=== PATIENT | male | born 1990 ===

== ENCOUNTER 2017-09-18 20:10 | Inpatient (IN) | payer OTHER ==
[2017-09-18 20:23] VITALS: O2SAT 99
--- NOTE | 2017-09-18 20:37 | C.PDOC ---
History Of Present Illness Pt was transferred here for psychiatric admission. Pt was medically cleared at the referring facility. Time Seen by Provider: 09/18/17 20:23 Chief Complaint (Nursing): Psychiatric Evaluation History Per: Patient, Other (Transfer papers) Onset/Duration Of Symptoms: Days Current Symptoms Are (Timing): Still Present Modifying Factor(s): Alcohol Severity: Moderate Associated Symptoms: Depression Additional History Per: Prior Records Past Medical History Reviewed: Historical Data, Nursing Documentation, Vital Signs Vital Signs: Last Vital Signs Temp 98.3 F 09/18/17 20:14 Pulse 60 09/18/17 20:14 Resp 18 09/18/17 20:14 BP 154/93 H 09/18/17 20:14 Pulse Ox 99 09/18/17 20:14 - Medical History PMH: Depression, Diabetes, Diverticulitis Other Surgeries: Colon resection due to diverticulitis. Family History: States: Unknown Family Hx - Social History Hx Alcohol Use: Yes Hx Substance Use: No - Immunization History Hx Tetanus Toxoid Vaccination: No Hx Influenza Vaccination: No Hx Pneumococcal Vaccination: No Review Of Systems Constitutional: Negative for: Fever Respiratory: Negative for: Shortness of Breath Gastrointestinal: Negative for: Vomiting Neurological: Negative for: Weakness, Seizures Physical Exam - Physical Exam Appears: Non-toxic, No Acute Distress Skin: Normal Color, Warm, Dry Head: Atraumatic, Normacephalic Eye(s): bilateral: PERRL, EOMI Neck: Normal ROM, Supple Cardiovascular: Rhythm Regular Respiratory: Normal Breath Sounds, No Accessory Muscle Use Gastrointestinal/Abdominal: Soft, No Tenderness Extremity: Normal ROM Neurological/Psych: Oriented x3, Normal Motor ED Course And Treatment O2 Sat by Pulse Oximetry: 99 Pulse Ox Interpretation: Normal Disposition - Disposition Disposition: HOSPITALIZED Disposition Time: 20:37 Condition: STABLE - Clinical Impression Clinical Impression: Depression Decision To Admit - Pt Status Changed To: Hospital Disposition Of: Inpatient - Admit Certification Admit to Inpatient:: After my assessment, the patient will require hospitalization for at least two midnights. This is because of the severity of symptoms shown, intensity of services needed, and/or the medical risk in this patient being treated as an outpatient. - InPatient: Physician Admission Certification: I certify that this patient requires 2 or more midnights of care for the following reason:: Psych. - . Bed Request Type: Psychiatry Admitting Physician: Diya Badillo Patient Diagnosis: Depression
--- NOTE | 2017-09-18 22:20 | PCM.BM ---
<Nilda Beltran - Last Filed: 09/18/17 22:16> Treatment Plan Problems - Problems identified on initial assessmt Depression Date Initiated: 09/18/17 Time Initiated: 22:10 Assessment reference: NA Status: Active Suicidal Ideation Date Initiated: 09/18/17 Time Initiated: 22:10 Assessment reference: NA Status: Active Treatment assets and liabiliti Patient Assests: negotiates basic needs Patient Liabilities: dietary restrictions (Diabetes diet), substance abuse ( Alcohol), medical problems (Diabetes) - Milieu Protocol Maintain good personal hygiene: daily Encourage regular showers, daily Remind patient to perform daily oral care, every shift Assist patient to perform ADL's Conduct patient checks and document Observation sheet: Q15 minutes Maintain personal safety: every shift Educate patient to report safety concerns to staff, every shift Monitor environment for contraband/sharps Medication safety: Monitor for expected outcome, potential side effects: every shift, Assess barriers to learning: every shift, Assess readiness for medication education: every shift <Diya Badillo - Last Filed: 09/21/17 11:40> - Diagnosis (1) Depression Status: Acute Interventions: 09/21/17 11:40 * Assess/adjust medications daily and /or as needed * See patient on an individual basis 7x/week to assess symptoms of depression * Monitor for side effects & effectiveness of medications * (2) Alcohol abuse Status: Acute Interventions: 09/21/17 11:40 * Assess 7x/week regarding severity of withdrawal * Educate regarding risks, benefits, side effects and alternatives of medications * Use Motivational Interviewing for abstinence * Use CBT for relapse prevention * Medication management for withdrawal symptoms * Encourage medication assisted treatment * <Roseann Breaux - Last Filed: 09/21/17 16:02> Family Contact Family involvement: Patient does not wish Family/SO involvement Family contact: Patient declines to allow family contact at present - Goals for Treatment Patient goals for treatment: "I want to be referred to [facility] outpatient program." Discharge/Continuing Care - Education Needs Education Needs: Patient Medication, Patient Diagnosis/Disease Process, Patient Coping Skills, Patient Placement options, Patient Community resources - Discharge Discharge Criteria: Free of Suicidal thoughts, No longer exhibiting s/s of withdrawal, Reduction of target symptoms Discharge to:: Home, With Family - Treatment Team Participation Discussed with Family/SO: No Was Patient/Family/SO present at Treatment Team Meeting: Yes
[2017-09-19] MEDS: Multiple Vitamins Tab PO SCH (09:06)
--- NOTE | 2017-09-19 12:39 | PCM.PSYCH ---
Initial Psychiatric Evaluation - Initial Psychiatric Evaluation Type of Admission: Voluntary Legal Status: Capacity Chief Complaint (in patient's own words): "I' m depressed" History of Present Illness and Precipitating Events: Pt is 26 year old male who was transferred to [facility] for worsening of depression, PTSD and alcohol use disorder. His BAL was 288. Pt stated that he has had worsening of depressive symptoms with SI. However, he denied intent or plan. He reported his X-BF committed suicide 4 year ago. He stated that he admitted multiple times for depression. His was decompensated 3 weeks ago due to unemployment issues, feeling guilty regarding his x-BF and relational conflict with family. He reported he had difficulty in sleep, low appetite, and anhedonia. He has had one suicide attempt in the past (He cut his left wrist). Pt stated that he drinks a pint of vodka and 2-3 cans of beer a day for the past 4 years. Pt reported alcohol withdrawal symptoms including nausea, headache , heart racing, hot and cold sweats, and seizures. He reported visual hallucination consisting of red spots and light flashes. Currently he denied AVH, paranoid delusions. He denied manic symptoms. Current Medications: Active Medications Generic Name Dose Route Start Last Admin Trade Name Freq PRN Reason Stop Dose Admin Clonidine HCl 0.1 mg 09/18/17 22:10 Catapres PO Q4H PRN Symptoms of alcohol withdrawl Folic Acid 1 mg 09/19/17 10:00 09/19/17 09:06 Folic Acid PO 1 mg DAILY SETH Administration Hydroxyzine HCl 25 mg 09/18/17 22:01 Atarax PO Q6H PRN Anxiety Lorazepam 2 mg 09/18/17 22:15 09/19/17 12:12 Ativan PO 09/23/17 22:14 2 mg Q4 SETH Administration Taper Metformin HCl 1,000 mg 09/18/17 22:00 09/19/17 09:08 Glucophage PO 1,000 mg BID SETH Administration Multivitamins 1 tab 09/19/17 10:00 09/19/17 09:06 Hexavitamin PO 1 tab DAILY SETH Administration Sitagliptin Phosphate 50 mg 09/19/17 10:00 09/19/17 09:07 Januvia PO 50 mg DAILY SETH Administration Thiamine HCl 100 mg 09/19/17 10:00 09/19/17 09:06 Vitamin B1 Tab PO 100 mg DAILY SETH Administration Trazodone HCl 50 mg 09/18/17 22:10 Desyrel PO HS PRN Insomnia Past Psychiatric History - Past Psychiatric History Previous Treatment History: Inpatient Explanation of prior treatment: medication management as well as detox treatment History of Abuse: denied History of ETOH/Drug Use: please see HPI History of Family Illness: grandfather was alcoholic Pertinent Medical Hx (Current Medical&Sleep Prob, Allergies): Allergies Allergy/AdvReac Type Severity Reaction Status Date / Time Penicillins Allergy SWELLING Verified 09/18/17 20:23 MetFORMIN [glucOPHAGE] 1,000 mg PO BID 09/18/17 SITagliptin [Januvia] 15 mg PO DAILY 09/18/17 DM Review of Systems - Review of Systems All systems: reviewed and no additional remarkable complaints except (PLEASE SEE HPI) Mental Status Examination - Personal Presentation Personal Presentation: Looks stated age, Dressed appropriate to season - Affect Affect: Constricted - Motor Activity Motor Activity: Calm - Reliability in Providing Information Reliability in Providing Information: Good - Speech Speech: Organized - Mood Mood: Depressed, Anxious - Formal Thought Process Formal Thought Process: No Impairment - Hallucinations/Delusions Hallucinations: Other (none reproted) - Obsessions/Compulsions Obsessions: None Compulsions: None - Cognitive Functions Orientation: Person, Place, Situation, Time Sensorium: Alert Attention/Concentration: Attentive, Easily distracted Abstract Thinking: [place] Estimate of Intelligence: Average Memory: Recent intact, as evidence by: Ability to recall events of the day - Risk Risk: Suicidal, Withdrawal - Strength & Assets Inventory Strength & Assets Inventory: Intelligence, Education, Employment history, Interests/hobbies, Cooperative - Limitations Limitations: Other (chronic alcohol use) DSM 5 DX - DSM 5 DSM 5 Diagnosis: Bipolar 1 disorder, mre depressive Alcohol use disorder, severe dependence Alcohol withdrawal - Recommended/Plan of Treatment Treatment Recommendations and Plan of Treatment: Ativan detox treatment Start Zoloft for depression MV and prn meds Meds for DM Psychoeducation Supportive therapy Monitor vitals OP/PT Therapy in milieu Time Spend 33 minutes Projected ELOS: 5-6 days Prognosis: fair with meds compliance Discharge Plan and Discharge Criteria: Refer to after care plan - Smoking Cessation Smoking Cessation Initiated: Yes
[2017-09-20] MEDS: Multiple Vitamins Tab PO SCH (09:19)
--- NOTE | 2017-09-20 14:19 | PCM.PYCHPN ---
Psychiatric Progress Note - Psychiatric Progress Note Patient seen today, length of contact: 16 minutes Patient Chief Complaint: "I' m depressed" Problems Identified/Issues Discussed: Pt was seen and evaluated. Nurse mark received. Pt stated he is still depressed. He reproted improvement in his withdrawal symptoms. He further explained that he is compliant with meds and denied s/e. He needs more time to improve. He denied SI, intent or plan Relationship is getting better with family members. Medication Change: Yes Medical Record Reviewed: Yes Mental Status Examination - Cognitive Function Orientation: Person, Place, Situation, Time Memory: Intact Attention: WNL Concentration: WNL Association: [facility] Fund of Knowledge: [facility] Decription of patient's judgement and insights: improving/improving - Mood Mood: Depressed, Anxious - Affect Affect: Constricted - Speech Speech: Appropriate - Formal Thought Process Formal Thought Process: No Impairment Psychotic Thoughts and Behaviors: denied - Suicidal Ideation Suicidal Ideation: No Plan: denied - Homicidal Ideation Homicidal Ideation: No Plan: denied Goal/Treatment Plan - Goal/Treatment Plan Need for Continued Stay: Severe depression anxiety, Discharge may exacerbated symptoms Progress Toward Problem(s) and Goals/Treatment Plan: Continue Ativan detox treatment Zoloft for depression MV and prn meds Meds for DM Psychoeducation Supportive therapy Monitor vitals OP/PT Therapy in milieu Estimated Date of D/C: 09/23/17 - Smoking Cessation Smoking Cessation Initiated: Yes
[2017-09-21] MEDS: Multiple Vitamins Tab PO SCH (09:49)
--- NOTE | 2017-09-21 11:40 | PCM.PYCHPN ---
Psychiatric Progress Note - Psychiatric Progress Note Patient seen today, length of contact: 16 minutes Patient Chief Complaint: I was feeling depressed.' Medication Change: Yes Medical Record Reviewed: Yes Mental Status Examination - Cognitive Function Orientation: Person, Place, Situation, Time Memory: Intact Attention: WNL Concentration: Poor Association: WNL Fund of Knowledge: Poor - Mood Mood: Depressed, Anxious - Affect Affect: Constricted - Speech Speech: Appropriate - Formal Thought Process Formal Thought Process: No Impairment - Suicidal Ideation Suicidal Ideation: No - Homicidal Ideation Homicidal Ideation: No Goal/Treatment Plan - Goal/Treatment Plan Need for Continued Stay: Severe depression anxiety, Discharge may exacerbated symptoms Progress Toward Problem(s) and Goals/Treatment Plan: Bipolar 1 disorder, mre depressive Alcohol use disorder, severe dependence Alcohol withdrawal Ativan taper Zoloft 100 mg for depression Seroquel 50 mg Daily Seroquel 100 mg po QHS Trazodone 100 mg MV and prn meds Meds for DM Psychoeducation Supportive therapy Monitor vitals OP/PT Therapy in [place] Estimated Date of D/C: 09/23/17 - Smoking Cessation Smoking Cessation Initiated: No
[2017-09-22] MEDS: Multiple Vitamins Tab PO SCH (09:08)
[2017-09-23] MEDS: Multiple Vitamins Tab PO SCH (10:07)
[2017-09-24] MEDS: Multiple Vitamins Tab PO SCH (09:06)
[2017-09-25 06:29] VITALS: RESP 20; TEMP 98.3
[2017-09-25] MEDS: Multiple Vitamins Tab PO SCH (09:39)
[2017-09-25 09:46] VITALS: BP 130/77; PULSE 84
--- NOTE | 2017-09-25 10:26 | PCM.PYCHDC ---
Mental Status Examination - Mental Status Examination Orientation: Person, Place, Situation, Time Memory: Intact Mood: Neutral Affect: Constricted Speech: Soft Attention: WNL Concentration: WNL Association: WNL Fund of Knowledge: WNL Formal Thought Process: No Impairment Description of patient's judgement and insight: good, fair Psychotic Thoughts and Behaviors: denies any AVH Suicidal Ideation: No Current Homicidal Ideation?: No Discharge Summary - Discharge Note Reason for Hospitalization: Pt is 26 year old male who was transferred to [facility] for worsening of depression, PTSD and alcohol use disorder. His BAL was 288. Pt stated that he has had worsening of depressive symptoms with SI. However, he denied intent or plan. He reported his X-BF committed suicide 4 year ago. He stated that he admitted multiple times for depression. His was decompensated 3 weeks ago due to unemployment issues, feeling guilty regarding his x-BF and relational conflict with family. He reported he had difficulty in sleep, low appetite, and anhedonia. He has had one suicide attempt in the past (He cut his left wrist). Pt stated that he drinks a pint of vodka and 2-3 cans of beer a day for the past 4 years. Pt reported alcohol withdrawal symptoms including nausea, headache , heart racing, hot and cold sweats, and seizures. He reported visual hallucination consisting of red spots and light flashes. Currently he denied AVH, paranoid delusions. He denied manic symptoms. Laboratory Data: Abnormal Lab Results 09/24/17 09/24/17 09/25/17 07:28 16:09 07:27 POC Glucose (mg/dL) 177 H 261 H 214 H Consultations:: List each consultation separately and include: 1. Reason for request. 2. Findings. 3. Follow-up Summary of Hospital Course include:: 1. Description of specific treatment plan utilized for patients during their course of treatmen. 2. Summarize the time- course for resolution of acute symptoms and/or regressed behaviors. 3. Describe issues identified and worked on during hospitalization. 4. Describe medication utilized. 5. Describe medical problems identified and treated. 6. Reassessment of suicide risk - Diagnosis (1) Depression Current Visit: Yes Status: Acute (2) Alcohol abuse Current Visit: Yes Status: Acute - Final Diagnosis (DSM 5) Condition upon Discharge: STABLE DSM 5: Bipolar 1 disorder, mre depressive Alcohol use disorder, severe dependence Alcohol withdrawal Disposition: HOME/ ROUTINE Follow-up Treatment Plan: Bipolar 1 disorder, mre depressive Alcohol use disorder, severe dependence Alcohol withdrawal Ativan taper Zoloft 100 mg for depression Seroquel 50 mg Daily Seroquel 100 mg po QHS Trazodone 100 mg MV and prn meds Meds for DM Psychoeducation Supportive therapy Monitor vitals OP/PT Therapy in [place] Prescriptions/Medication Reconciliation: QUEtiapine [Seroquel] 100 mg PO BID #60 tab Sertraline [Zoloft] 100 mg PO DAILY #30 tab traZODone [Desyrel] 100 mg PO HS PRN #30 tab PRN Reason: Insomnia - Smoking Cessation Smoking Cessation Medication prescribed: No - Antipsychotic Medications Pt discharged on 2 or more routine antipsychotic medications: No
== END 2017-09-25 11:36 | disposition home or self-care (01) | DRG 430 ==
LOC: C.ER 20:10 → C.5E 20:37
PROVIDERS: ADMIT Psychiatry & Neurology Psychiatry; ATTEND Psychiatry & Neurology Psychiatry
PROC: GZ56ZZZ Individual Psychotherapy, Supportive (ICD-10-PCS; principal; 2017-09-18)
DX: F31.9 Bipolar disorder, unspecified (principal); R56.9 Unspecified convulsions; F10.230 Alcohol dependence with withdrawal, uncomplicated; F43.10 Post-traumatic stress disorder, unspecified; E11.9 Type 2 diabetes mellitus without complications; Y90.9 Presence of alcohol in blood, level not specified